=== PATIENT | male | born 1965 | race Caucasian/White ===

== ENCOUNTER 2019-11-26 10:52 | Emergency (ER) | payer BC, OTHER ==
[2019-11-26 11:07] VITALS: BP 157/96
[2019-11-26] MEDS ORDERED: HYDROCODONE/ACETAMINOPHEN 5-325 MG TABLET PO ONE (11:07)
--- NOTE | 2019-11-26 11:09 | ER Document Report ---
ED Medical Screen (RME) - General Chief Complaint: Laceration Stated Complaint: LACERATION Time Seen by Provider: 11/26/19 11:02 Primary Care Provider: RAQUEL CALLOWAY MD [Primary Care Provider] - Follow up as needed Notes: Patient is a 54-year-old male presents emergency department with a chief complaint of left wrist laceration. Patient was using a saw and accidentally cutting his left wrist. Patient is up-to-date on his immunizations. Exam: About 3 cm laceration to left wrist at distal radial area. I have greeted and performed a rapid initial assessment of this patient. A comprehensive ED assessment and evaluation of the patient, analysis of test results and completion of medical decision making process will be conducted by an additional ED providers. - Related Data Allergies/Adverse Reactions: No Known Allergies Allergy (Unverified 11/26/19 10:58) Past Medical History - Social History Chew tobacco use (# tins/day): No Frequency of alcohol use: None Drug Abuse: None Physical Exam - Vital signs Vitals: Temp Pulse Resp BP Pulse Ox 98.4 F 67 16 157/96 H 98 11/26/19 10:57 11/26/19 10:57 11/26/19 10:57 11/26/19 10:57 11/26/19 10:57 Course - Vital Signs Vital signs: Temp Pulse Resp BP Pulse Ox 98.4 F 67 16 157/96 H 98 11/26/19 10:57 11/26/19 10:57 11/26/19 10:57 11/26/19 10:57 11/26/19 10:57 Doctor's Discharge - Discharge Referrals: RAQUEL CALLOWAY MD [Primary Care Provider] - Follow up as needed
--- NOTE | 2019-11-26 11:35 | RADIOLOGY REPORT (SQ) ---
EXAM DESCRIPTION: WRIST LEFT 3 VIEWS IMAGES COMPLETED DATE/TIME: 11/26/2019 11:14 am REASON FOR STUDY: laceration; possible metal in wrist COMPARISON: None. NUMBER OF VIEWS: Three views of the left wrist. LIMITATIONS: Mild limiting external artifact from bandaging material. FINDINGS: 2.4 mm deep dorsal metallic fragment along the distal radius. OTHER: No fracture. IMPRESSION: Metallic foreign body. TECHNICAL DOCUMENTATION: JOB ID: [id number] Reading location - IP/workstation name: [email or web address]
[2019-11-26] MEDS ORDERED: LIDOCAINE 1%/EPINEPHRINE INJ 20 ML VIAL INJ ONE (12:06)
--- NOTE | 2019-11-26 12:06 | ER Document Report ---
ED Wound - General Chief Complaint: Laceration Stated Complaint: LACERATION Time Seen by Provider: 11/26/19 11:02 Primary Care Provider: RAQUEL CALLOWAY MD [NO LOCAL MD] - Follow up as needed Notes: CHIEF COMPLAINT: Left wrist laceration HPI: 54-year-old male presenting for laceration to the left wrist from a cut off wheel. Patient states tetanus is up-to-date. Patient denies other injuries or complaints at this time. Denies numbness or tingling in the fingertips ROS: See HPI - all other systems were reviewed and are otherwise negative Constitutional: no fever Integumentary: no rash, positive laceration Allergy: no hives Musculoskeletal: + extremity pain or swelling Neurological: no numbness/tingling, no weakness MEDICATIONS: I agree with the patient medications as charted by the RN. ALLERGIES: I agree with the allergies as charted by the RN. PAST MEDICAL HISTORY/PAST SURGICAL HISTORY: Reviewed and agree as charted by RN. SOCIAL HISTORY: Reviewed and agree as charted by RN. FAMILY HISTORY: No significant familial comorbid conditions directly related to patient complaint EXAM: Reviewed vital signs as charted by RN. CONSTITUTIONAL: Alert and oriented and responds appropriately to questions. Well-appearing; well-nourished HEAD: Normocephalic; atraumatic EYES: PERRL; Conjunctivae clear, sclerae non-icteric ENT: normal nose; no rhinorrhea; moist mucous membranes NECK: Supple without meningismus CARD: Capillary refill less than 3 seconds; symmetric distal pulses RESP: Normal chest excursion without splinting or tachypnea ABD/GI: non-distended BACK: The back appears normal EXT: Normal ROM in all joints; no cyanosis, no effusions, no edema. There is a 3 cm laceration to the left wrist distal radial region. Patient's hands are very dirty with grease. No definitive foreign body seen on quick examination of the wound SKIN: Normal color for age and race; warm; dry; good turgor NEURO: Moves all extremities equally; Motor and sensory function intact PSYCH: The patient's mood and manner are appropriate. Grooming and personal hygiene are appropriate. MDM: 54-year-old male with laceration to the left wrist. Does appear to be a metallic foreign body in the wound on x-ray will explore after anesthesia and proper cleaning in a bloodless field. - Related Data Allergies/Adverse Reactions: No Known Allergies Allergy (Unverified 11/26/19 10:58) Past Medical History - Social History Smoking Status: Current Every Day Smoker Chew tobacco use (# tins/day): No Frequency of alcohol use: None Drug Abuse: None Family History: Reviewed & Not Pertinent Physical Exam - Vital signs Vitals: Temp Pulse Resp BP Pulse Ox 98.4 F 67 16 157/96 H 98 11/26/19 10:57 11/26/19 10:57 11/26/19 10:57 11/26/19 10:57 11/26/19 10:57 Course - Vital Signs Vital signs: Temp Pulse Resp BP Pulse Ox 98.4 F 67 16 157/96 H 98 11/26/19 10:57 11/26/19 10:57 11/26/19 10:57 11/26/19 10:57 11/26/19 10:57 Procedures - Laceration/Wound Repair Left Medial Wrist Time completed: 13:08 Wound length (cm): 3 Wound's Depth, Shape: Superficial, Irregular, Stellate, Contused tissue Laceration pre-procedure: Sterile PPE donned, Sterile drapes applied, Shur-Clens applied, Other - Saline Volume Anesthetic (mLs): 1 Wound explored: Contaminated - Multiple small black metallic foreign bodies were noted and these were removed along with contused tissue, slight debridement of skin flap. A 2 mm metallic foreign body was removed, Foreign body removed Irrigated w/ Saline (mLs): 500 Wound Debrided: Minimal Wound Repaired With: Sutures Suture Size/Type: 4:0, Prolene Number of Sutures: 3 Layer Closure?: No Post-procedure wound care: Sterile dressing applied Post-procedure NV exam normal: Yes Complications: No Notes: 11/26/19 13:09 Multiple small foreign bodies were removed from the tissue in a bloodless field after anesthesia. Discussed with the patient at length the need to take the antibiotics and return for any signs of infection. Patient states he will go back to work although I did recommend that he rest the wrist for 2 to 3 days to give it better chance of healing without infection. Patient verbalizes understanding and will return to the emergency department for reevaluation of the wound if he develops any concerns with that otherwise sutures out in 2 weeks Discharge - Discharge Clinical Impression: Laceration of wrist with foreign body Qualifiers: Encounter type: initial encounter Laterality: left Qualified Code(s): S61.522A - Laceration with foreign body of left wrist, initial encounter Condition: Stable Disposition: HOME, SELF-CARE Additional Instructions: Clean the wound daily with soap and water apply a small amount of antibiotic ointment and a dressing until healed. Sutures will need to come out in 2 weeks. Foreign body was removed from the wound today. If you develop any redness swelling or discharge from the area please return to the emergency department for reevaluation of the wound as discussed Prescriptions: Amoxicillin/Potassium Clav [Augmentin 500-125 Tablet] 1 each PO TID #21 tablet Referrals: RAQUEL CALLOWAY MD [NO LOCAL MD] - Follow up as needed
[2019-11-26] MEDS ORDERED: AMOXICILLIN TR/POT CLAVULANATE 875-125 MG TAB PO ONE (13:10)
== END 2019-11-26 13:44 | disposition home or self-care (01) ==
LOC: ER 10:52
PROC: 0HQEXZZ Repair Left Lower Arm Skin, External Approach (ICD-10-PCS; principal; 2019-11-26)
DX: S61.522A Laceration with foreign body of left wrist, initial encounter (principal); M79.602 Pain in left arm; F17.200 Nicotine dependence, unspecified, uncomplicated; X58.XXXA Exposure to other specified factors, initial encounter
CPT/HCPCS: 99283; 73110; 12002; J3490 ×2